=== PATIENT | male | born 1975 ===

== ENCOUNTER 2019-11-17 14:15 | Outpatient (RCR) | payer BC | END 2019-11-26 | disposition home or self-care (01) | LOC: WCC 14:15 | DX: L98.492 Non-pressure chronic ulcer of skin of other sites with fat layer exposed (principal); E11.621 Type 2 diabetes mellitus with foot ulcer | CPT/HCPCS: 11042; G0463 ==

== ENCOUNTER 2019-12-08 12:14 | Outpatient (RCR) | payer BC ==
[~2019-12-08] VITALS: Ht 193 cm; Wt 117.9 kg
== END 2019-12-27 | disposition home or self-care (01) ==
LOC: WCC 12:14
DX: L98.492 Non-pressure chronic ulcer of skin of other sites with fat layer exposed (principal); E11.621 Type 2 diabetes mellitus with foot ulcer; Z90.49 Acquired absence of other specified parts of digestive tract
CPT/HCPCS: 11042

== ENCOUNTER 2020-01-12 11:43 | Outpatient (RCR) | payer BC | END 2020-01-26 | disposition home or self-care (01) | LOC: WCC 11:43 | DX: L98.492 Non-pressure chronic ulcer of skin of other sites with fat layer exposed (principal); E11.621 Type 2 diabetes mellitus with foot ulcer; Z90.49 Acquired absence of other specified parts of digestive tract | CPT/HCPCS: 11042 ==